=== PATIENT | male | born 1935 | race Caucasian/White ===

== ENCOUNTER → 2021-04-08 09:55 | Outpatient (CLI) | payer MEDICARE, SELFPAY ==
--- NOTE | 2021-04-08 | DI.MRI.S_ITS ---
PROCEDURE: MR HEAD/BRAIN WO CON INDICATIONS: Other symptoms and signs involving cognitive funct TECHNIQUE: Non-contrast axial T1 spin echo, axial T2 fast spin echo, sagittal and axial FLAIR, coronal T2 fast spin echo, axial gradient echo, axial diffusion and ADC through the brain. COMPARISON: [facility], MR, MR BRAIN WITHOUT CONTRAST, 09/14/2018, 10:26. FINDINGS: Image quality: Excellent. CSF spaces: Ventricles appear symmetric in size and shape. Basal cisterns are patent. No extra-axial fluid collections. Brain: No intracranial bleeds or mass effects. There is cerebral volume loss for age. There are periventricular and deep white matter chronic small vessel ischemic changes. Brainstem appears normal. Diffusion-weighted images show no acute ischemic insults. No chronic ischemic insults. Normal intravascular flow voids are present. Skull and face: Calvarial bone marrow is normal in signal. Orbits are normal. Sinuses: Sinuses and mastoids are clear. IMPRESSION: 1. Volume loss and small vessel ischemic disease. 2. No acute process. No recent infarct. Dictated by: Mendel Aaron M.D. on 04/08/2021 at 10:32 Approved by: Mendel Aaron M.D. on 04/08/2021 at 10:33
== END ==
PROVIDERS: PCP Family Medicine; Referring Provider Family Medicine; Visit Provider Family Medicine
DX: R41.3 Other amnesia (principal); R41.89 Other symptoms and signs involving cognitive functions and awareness
CPT/HCPCS: 70551